=== PATIENT | female | born 2000 | race Hispanic/Latino ===

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

== ENCOUNTER 2018-09-30 01:13 | Emergency (ER) | payer MEDICAID, OTHER ==
[2018-09-30 01:27] VITALS: TEMP 98.5
--- NOTE | 2018-09-30 01:45 | ED PDOC ---
Arrival/HPI - General Chief Complaint: Female Genitourinary Time Seen by Provider: 09/30/18 01:16 Historian: Patient - History of Present Illness Narrative History of Present Illness (Text): 09/30/18 01:51 17 year old female with no significant past medical history, presents to the emergency department accompanied by family complaining of abdominal pain that began today. Patient states she is unsure where the bleeding is coming from, but reports either vaginal bleeding or hematuria. Patient denies any fever, chills, chest pain, shortness of breath, nausea, vomiting, diarrhea, urinary symptoms, back pain, neck pain, headache, dizziness, or any other complaints. Symptom Onset: Gradual Symptom Course: Unchanged Activities at Onset: Light Context: Home Past Medical History - Provider Review Nursing Documentation Reviewed: Yes - Cardiac Hx Cardiac Disorders: No - Pulmonary Hx Respiratory Disorders: No - Neurological Hx Neurological Disorder: No - HEENT Hx HEENT Disorder: No - Renal Hx Renal Disorder: No - Endocrine/Metabolic Hx Endocrine Disorders: No - Hematological/Oncological Hx Blood Disorders: No - Integumentary Hx Dermatological Disorder: Yes Other/Comment: LACERATION - Musculoskeletal/Rheumatological Hx Musculoskeletal Disorders: No - Gastrointestinal Hx Gastrointestinal Disorders: No - Genitourinary/Gynecological Hx Genitourinary Disorders: No - Psychiatric Hx Psychophysiologic Disorder: No Hx Substance Use: No - Anesthesia Hx Anesthesia: No Family/Social History - Physician Review Nursing Documentation Reviewed: Yes Family/Social History: No Known Family HX Smoking Status: Light Smoker < 10 Cigarettes Daily Hx Alcohol Use: No Hx Substance Use: No Allergies/Home Meds Allergies/Adverse Reactions: Allergies apple Allergy (Verified 09/30/18 01:21) SWELLING peanut Allergy (Verified 09/30/18 01:21) SWELLING Review of Systems - Physician Review All systems were reviewed & negative as marked: Yes - Review of Systems Constitutional: absent: Fevers, Other (chills) Respiratory: absent: SOB Cardiovascular: absent: Chest Pain Gastrointestinal: Abdominal Pain. absent: Diarrhea, Nausea, Vomiting Genitourinary Female: Hematuria, Vaginal Bleeding Neurological: absent: Headache, Dizziness Physical Exam Vital Signs Reviewed: Yes Vital Signs Temp Pulse Resp BP Pulse Ox 09/30/18 01:27 98.5 F 114 H 18 150/120 H 96 Temperature: Afebrile Blood Pressure: Hypertensive Pulse: Tachycardic Respiratory Rate: Normal Appearance: Positive for: Well-Appearing, Non-Toxic, Comfortable Pain Distress: None Mental Status: Positive for: Alert and Oriented X 3 - Systems Exam Head: Present: Atraumatic, Normocephalic Pupils: Present: PERRL Extroacular Muscles: Present: EOMI Conjunctiva: Present: Normal Mouth: Present: Moist Mucous Membranes Neck: Present: Normal Range of Motion Respiratory/Chest: Present: Clear to Auscultation, Good Air Exchange. No: Respiratory Distress, Accessory Muscle Use Cardiovascular: Present: Regular Rate and Rhythm, Normal S1, S2. No: Murmurs Abdomen: No: Tenderness, Distention, Peritoneal Signs Back: Present: Normal Inspection Upper Extremity: Present: Normal Inspection. No: Cyanosis, Edema Lower Extremity: Present: Normal Inspection. No: Edema Neurological: Present: GCS=15, CN II-XII Intact, Speech Normal Skin: Present: Warm, Dry, Normal Color. No: Rashes Psychiatric: Present: Alert, Oriented x 3, Normal Insight, Normal Concentration Medical Decision Making ED Course and Treatment: 09/30/18 01:46 Impression: 17 year old female presents complaining of lower abdominal pain and unsure if it' hematuria or vaginal bleeding that began today. Plan: -- POC Urine -- Urinalysis -- Reassess and disposition Progress Notes: - Lab Interpretations I have reviewed the lab results: Yes - Scribe Statement The provider has reviewed the documentation as recorded by the Ann Fine Provider Scribe Attestation: All medical record entries made by the Scribe were at my direction and personally dictated by me. I have reviewed the chart and agree that the record accurately reflects my personal performance of the history, physical exam, medical decision making, and the department course for this patient. I have also personally directed, reviewed, and agree with the discharge instructions and disposition. Disposition/Present on Arrival - Present on Arrival Any Indicators Present on Arrival: No History of DVT/PE: No History of Uncontrolled Diabetes: No Urinary Catheter: No History of Decub. Ulcer: No History Surgical Site Infection Following: None - Disposition Have Diagnosis and Disposition been Completed?: Yes Diagnosis: Urinary tract infection Disposition: HOME/ ROUTINE Disposition Time: 03:00 Condition: STABLE Discharge Instructions (ExitCare): Urinary Tract Infections in Adults Prescriptions: Cephalexin [cephalexin] 500 mg PO BID #14 cap Phenazopyridine [Pyridium] 200 mg PO PC #6 tab [facility] - Follow up with primary Forms: [employer] (Malay)
[2018-09-30 01:55] VITALS: RESP 16
[2018-09-30 02:13] LABS: URINE BILIRUBIN NEGATIVE (NEGATIVE); URINE BLOOD LARGE (NEGATIVE); URINE GLUCOSE (UA) NEGATIVE (NEGATIVE); URINE LEUKOCYTE ESTERASE SMALL Leu/uL (NEGATIVE); URINE PROTEIN TRACE mg/dL (<30 mg/dL); URINE UROBILINOGEN 0.2 E.U./dL (<1 E.U./dL)
[2018-09-30 02:16] LABS: URINE APPEARANCE SL CLOUDY (CLEAR); URINE COLOR YELLOW (YELLOW)
[2018-09-30 02:36] LABS: URINE BACTERIA SMALL /hpf; URINE EPITHELIAL CELLS MANY /hpf (0-5)
[2018-09-30 03:01] VITALS: BP 125/82; PULSE 85; O2SAT 99
== END 2018-09-30 03:00 | disposition home or self-care (01) ==
LOC: ED 01:13
DX: N39.0 Urinary tract infection, site not specified (principal)